=== PATIENT | female | born 1980 | race Caucasian/White ===

== ENCOUNTER 2016-04-18 19:50 | Emergency (ER) | payer OTHER ==
[~2016-04-18] VITALS: Ht 165.1 cm; Wt 58.5 kg
[~2016-04-18 19:50] MED LIST: ELMI100C PO; HYDR-755 PO; IBUP600 PO
[2016-04-18 19:53] VITALS: BP 112/77; PULSE 87; RESP 18; TEMP 99; O2SAT 97
[2016-04-18] MEDS ORDERED: IBUP800T23 PO (20:06)
[2016-04-18] MEDS ORDERED: CLIN1CAP5 PO (20:06)
[2016-04-18] MEDS ORDERED: PERI0.126 SWISH-SPIT (20:06)
--- NOTE | 2016-04-18 20:07 | PD ---
HPI Chief Complaint: Oral / Dental Pain or Problem Time Seen by Provider: 19:59 Travel History International Travel<30 days: No Contact w/Intl Traveler<30days: No Traveled to known affect area: No History of Present Illness HPI 35 -year-old female presents to the emergency department for evaluation of dental pain for 1 week. She denies any fevers or chills. She has no chronic medical problems and takes no prescribed medications. She has a history of a partial hysterectomy. She has not yet followed up with a dentist. She has been taking ibuprofen [id number] without relief. PFSH Past Medical History Cardiovascular Problems: Yes (MVP) Reproductive: Yes (ENDOMETRIOSIS) Tetanus Vaccination: > 5 Years Influenza Vaccination: No ?: Not LMP: PARTIAL HYST Past Surgical History Gynecologic Surgery: Yes (LAPPROSCOPY) Hysterectomy: Yes (Partial) Social History Alcohol Use: Yes (RARE) Tobacco Use: No Substance Use: No Allergies-Medications (Allergen,Severity, Reaction): Coded Allergies: Penicillin (Verified Allergy, Unknown, UNKNOWN, 04/18/16) A CHILD Reported Meds & Prescriptions Reported Meds & Active Scripts Active Motrin 600 Mg Tab (Ibuprofen) 600 Mg Tab 600 Mg PO Q6H PRN Reported Elmiron (Pentosan Polysulfate Sodium) 100 Mg Cap 100 Mg PO TID Hydroxyzine Hcl (Hydroxyzine HCl) 10 Mg Tab 10 Mg PO Q6 Review of Systems Except as stated in HPI: all other systems reviewed are Neg Physical Exam Narrative GENERAL: Well-developed well-nourished female patient, ambulatory. Afebrile. SKIN: Warm and dry. HEAD: Normocephalic. Atraumatic. No facial swelling. ENT: Mucosa pink and moist. No erythema or exudates. No uvular edema. No uvular , palatal, or tonsillar deviation. Airway patent. Nasal turbinates appear normal without nasal blood, purulent drainage or septal hematoma. Bilateral tympanic membranes are clear without erythema or perforation. Patient has tenderness above tooth #11, 12, 13, 14. No obvious induration or fluctuance. EYES: No scleral icterus. No injection or drainage. NECK: Supple, trachea midline. No JVD or lymphadenopathy. CARDIOVASCULAR: Regular rate and rhythm without murmurs, gallops, or rubs. RESPIRATORY: Breath sounds equal bilaterally. No accessory muscle use. Lungs sounds are clear to auscultation. MUSCULOSKELETAL: No cyanosis, or edema. Data Data Last Documented VS Vital Signs Date Time Temp Pulse Resp B/P Pulse Ox O2 Delivery O2 Flow Rate FiO2 04/18/16 19:53 99.0 87 18 112/77 97 MDM Medical Decision Making Medical Screen Exam Complete: Yes Emergency Medical Condition: Yes Medical Record Reviewed: Yes Differential Diagnosis Dental abscess versus dental caries versus gingivitis Narrative Course 35-year-old female presents to the emergency department for evaluation of dental pain for 1 week. No evidence of dental abscess on exam. She'll be discharged prescription for clindamycin, Peridex oral solution, ibuprofen for pain. She is instructed to follow-up with a dentist. Diagnosis Primary Impression: Toothache Referrals: Dentist call for appointment Patient Instructions: General Instructions, Toothache (ED) Additional Instructions: Take antibiotic as instructed until gone. Use Peridex oral solution as directed. Take ibuprofen as instructed as needed with food for pain. Follow-up with your primary care physician. Return to the emergency department for any acute worsening of symptoms. Med/Other Pt SpecificInfo: Prescription(s) given Scripts Ibuprofen 800 Mg [id number] Mg PO TID PRN (PAIN SCALE 1 TO 10) #21 TAB Ref 0 Prov:Macie Cameron 04/18/16 Chlorhexidine Gluconate (Mouth) Liq (Peridex Liq)0.12% Soln15 Ml SWISH-SPIT BID #473 ML Ref 0 Prov:Macie Cameron 04/18/16 Clindamycin 150 Mg Utr614 Mg PO Q6H 10 Days Ref 0 Prov:Macie Cameron 04/18/16 Disposition: 01 DISCHARGE HOME Condition: Stable Macie Cameron Apr 18, 2016 20:07
== END 2016-04-18 20:18 | disposition home or self-care (01) ==
LOC: PHEFT 19:50
DX: K08.89 Other specified disorders of teeth and supporting structures (principal)
CPT/HCPCS: 99282